=== PATIENT | male | born 1965 | race Caucasian/White ===

== ENCOUNTER 2024-03-03 03:38 | Emergency (ER) | payer OTHER ==
[~2024-03-03] VITALS: Ht 170.2 cm; Wt 74.8 kg
[~2024-03-03 03:38] MED LIST: CLON1TAB PO; ESCI10TA PO
[2024-03-03 03:47] VITALS: BP 131/79; TEMP 98; O2SAT 97
== END 2024-03-03 04:43 ==
LOC: ER 03:46
DX: Z02.89 Encounter for other administrative examinations (principal); Z98.890 Other specified postprocedural states; Z79.899 Other long term (current) drug therapy; Z60.2 Problems related to living alone; Z88.1 Allergy status to other antibiotic agents

== ENCOUNTER 2024-06-13 16:20 | Emergency (ER) | payer OTHER ==
[~2024-06-13] VITALS: Ht 175.3 cm; Wt 65.8 kg
[2024-06-13 16:56] VITALS: BP 126/68; TEMP 97.6; O2SAT 99
[2024-06-13] MEDS ORDERED: SULF1TAB48 PO (17:05)
[2024-06-13] MEDS ORDERED: CEPH-570 PO (17:05)
[2024-06-13] MEDS ORDERED: CEFTRIAXONE 1 G VIAL ONE (17:13)
[2024-06-13] MEDS ORDERED: LIDOCAINE /MPF 1% VIAL 5 ML VIAL ONE (17:14)
[2024-06-13] MEDS: CEFTRIAXONE 1 G VIAL IM ONE (17:25)
== END 2024-06-13 17:30 | disposition home or self-care (01) ==
LOC: ER 16:45
DX: L02.512 Cutaneous abscess of left hand (principal); F32.A Depression, unspecified; F41.9 Anxiety disorder, unspecified; Z88.8 Allergy status to other drugs, medicaments and biological substances
CPT/HCPCS: 99283; 96372; J0696; J3490; A6403

== ENCOUNTER 2024-06-24 13:09 | Emergency (ER) | payer OTHER ==
[~2024-06-24] VITALS: Ht 175.3 cm; Wt 77.6 kg
[~2024-06-24 13:09] MED LIST changes: +CEPH-570 PO; +SULF1TAB48 PO
[2024-06-24 13:47] LABS: BASOPHILS % (AUTO) 0.7 % (0.0-2.0); EOSINOPHILS # (AUTO) 0.1 K/uL (0.0-0.7); EOSINOPHILS % (AUTO) 0.9 % (0.0-6.0); HEMATOCRIT 33 % (39-51); HEMOGLOBIN 11.4 g/dL (13.5-17.5); LYMPHOCYTES # (AUTO) 1.1 K/uL (0.8-4.8); LYMPHOCYTES % (AUTO) 17.6 % (20.0-44.0); MEAN CORPUSCULAR HEMOGLOBIN 31 PG (26.0-33.0); MEAN CORPUSCULAR HGB CONC 35 g/dl (31.0-36.0); MEAN CORPUSCULAR VOLUME 88 fL (80-96); MONOCYTES # (AUTO) 0.6 K/uL (0.1-1.30); MONOCYTES % (AUTO) 9.9 % (2.0-12.0); NEUTROPHILS # (AUTO) 4.5 K/uL (1.8-8.9); NEUTROPHILS % (AUTO) 70.9 % (43.0-81.0); PLATELET COUNT (AUTO) 208 K/uL (150-450); RED CELL DISTRIBUTION WIDTH 12.9 % (11.5-15.0); WHITE BLOOD COUNT (AUTO) 6.4 K/uL (4.3-11.0)
[2024-06-24] MEDS ORDERED: ONDANSETRON HCL/PF 4 MG/2 ML VIAL ONE (14:16)
[2024-06-24] MEDS ORDERED: MORPHINE SULFATE INJ 4 MG/ML DISP.SYRIN ONE (14:16)
[2024-06-24 14:29] LABS: ALBUMIN 3.2 g/dL (3.4-5.0); BILIRUBIN,DIRECT 0.2 mg/dL (0.0-0.2); BILIRUBIN,TOTAL 0.7 mg/dL (0.2-1.0); CALCIUM, SERUM 9.2 mg/dL (8.5-10.1); CREATININE 0.7 mg/dL (0.6-1.3)
[2024-06-24] MEDS: IV NS 0.9% 1,000 ML BAG IV ONE (14:44)
[2024-06-24] MEDS: ONDANSETRON HCL/PF 4 MG/2 ML VIAL IV ONE (14:45)
[2024-06-24] MEDS: MORPHINE SULFATE INJ 2 MG/ML DISP.SYRIN IV ONE (14:48)
[2024-06-24 14:53] LABS: APPEARANCE,URINE CLEAR (CLEAR); BILIRUBIN,URINE NEGATIVE (NEGATIVE); BLOOD, URINE NEGATIVE Ery/uL (NEGATIVE); COLOR,URINE YELLOW (YELLOW); KETONES,URINE NEGATIVE (NEGATIVE); LEUKOCYTE ESTERASE ,URINE NEGATIVE (NEGATIVE); NITRITE, URINE NEGATIVE (NEGATIVE); PROTEIN,URINE NEGATIVE (NEGATIVE); UGLUCOSE NEGATIVE (NEGATIVE); UROBILINOGEN,URINE 0.2 EU/dL (0.2)
[2024-06-24] MEDS ORDERED: FURO-145 PO (16:04)
[2024-06-24] MEDS ORDERED: AMOX-430 PO (16:04)
[2024-06-24] MEDS ORDERED: ONDA4TAB5 PO (16:04)
[2024-06-24] MEDS ORDERED: DOXY100C2 PO (16:04)
[2024-06-24 16:49] VITALS: BP 115/77; TEMP 97.8; O2SAT 98
== END 2024-06-24 16:50 | disposition home or self-care (01) ==
LOC: ER 13:22
DX: K52.9 Noninfective gastroenteritis and colitis, unspecified (principal); F32.A Depression, unspecified; K86.2 Cyst of pancreas; K76.9 Liver disease, unspecified; L03.115 Cellulitis of right lower limb; L03.116 Cellulitis of left lower limb; Z79.899 Other long term (current) drug therapy; Z88.8 Allergy status to other drugs, medicaments and biological substances
CPT/HCPCS: 99285; 74176; 93970; 96374; 71045; 96361; 96375; 93005; 85025; 80048; 83690; 80076; 81003; 36415; 84484; 83880; J2270; J2405; J7030

== ENCOUNTER 2024-07-26 09:25 | Emergency (ER) | payer OTHER ==
[~2024-07-26] VITALS: Ht 165.1 cm; Wt 72.6 kg
[~2024-07-26 09:25] MED LIST changes: +AMOX-430 PO; +DOXY100C2 PO; +FURO-145 PO; +ONDA4TAB5 PO
[2024-07-26] MEDS ORDERED: SULF1TAB48 PO (10:19)
[2024-07-26] MEDS ORDERED: CEPH500C2 PO (10:19)
[2024-07-26] MEDS ORDERED: ACET-2605 PO (10:20)
[2024-07-26] MEDS ORDERED: IBUP-1955 PO (10:20)
[2024-07-26] MEDS ORDERED: ACETAMINOPHEN ES 500 MG TABLET ONE (10:25)
[2024-07-26] MEDS ORDERED: CEPHALEXIN MONOHYDRATE 500 MG CAPSULE PO ONE (10:26)
[2024-07-26] MEDS ORDERED: SULFAMETH/TRIMETH 800/160 MG 1 UDTAB TABLET ONE (10:27)
[2024-07-26] MEDS: SULFAMETH/TRIMETH 800/160 MG 1 UDTAB TABLET PO ONE (10:31)
[2024-07-26] MEDS: CEPHALEXIN MONOHYDRATE 500 MG CAPSULE PO ONE (10:31)
[2024-07-26] MEDS: ACETAMINOPHEN ES 500 MG TABLET PO ONE (10:32)
[2024-07-26] MEDS ORDERED: DICY10CA37 PO (11:06)
[2024-07-26] MEDS ORDERED: LOPE2TAB25 PO (11:06)
[2024-07-26 11:25] VITALS: BP 137/82; TEMP 99.2; O2SAT 98
[2024-07-26] MEDS: LOPERAMIDE HCL (2 MG CAP) 2 MG CAPSULE PO ONE (11:30)
== END 2024-07-26 11:31 | disposition home or self-care (01) ==
LOC: ER 09:30
DX: L02.511 Cutaneous abscess of right hand (principal); L03.011 Cellulitis of right finger; F32.A Depression, unspecified; F41.9 Anxiety disorder, unspecified; R00.0 Tachycardia, unspecified; R19.7 Diarrhea, unspecified; Z79.899 Other long term (current) drug therapy; Z88.8 Allergy status to other drugs, medicaments and biological substances
CPT/HCPCS: 99284; A6403

== ENCOUNTER 2024-08-10 01:35 | Emergency (ER) | payer OTHER ==
[~2024-08-10] VITALS: Ht 175.3 cm; Wt 78.0 kg
[~2024-08-10 01:35] MED LIST changes: +ACET-2605 PO; +CEPH500C2 PO; +DICY10CA37 PO; +IBUP-1955 PO; +LOPE2TAB25 PO
[2024-08-10 01:52] VITALS: BP 127/80; TEMP 98.1; O2SAT 98
[2024-08-10 02:23] LABS: BASOPHILS # (AUTO) 0.1 K/uL (0.0-0.2); EOSINOPHILS # (AUTO) 0.2 K/uL (0.0-0.7); EOSINOPHILS % (AUTO) 3.2 % (0.0-6.0); HEMATOCRIT 36 % (39-51); HEMOGLOBIN 12.7 g/dL (13.5-17.5); LYMPHOCYTES # (AUTO) 1.4 K/uL (0.8-4.8); MEAN CORPUSCULAR HEMOGLOBIN 31 PG (26.0-33.0); MEAN CORPUSCULAR HGB CONC 36 g/dl (31.0-36.0); MEAN CORPUSCULAR VOLUME 87 fL (80-96); MONOCYTES # (AUTO) 0.4 K/uL (0.1-1.30); MONOCYTES % (AUTO) 7.6 % (2.0-12.0); NEUTROPHILS # (AUTO) 3.6 K/uL (1.8-8.9); NEUTROPHILS % (AUTO) 63.2 % (43.0-81.0); PLATELET COUNT (AUTO) 327 K/uL (150-450); RED BLOOD CELL COUNT(AUTO) 4.09 MIL/uL (4.5-6.0); RED CELL DISTRIBUTION WIDTH 13.6 % (11.5-15.0); WHITE BLOOD COUNT (AUTO) 5.7 K/uL (4.3-11.0)
[2024-08-10 02:38] LABS: CREATININE 1.1 mg/dL (0.6-1.3); POTASSIUM 3.6 mmol/L (3.5-5.1)
[2024-08-10 02:41] LABS: INR 1.1 (0.91-1.10); PARTIAL THROMBOPLASTIN TIME 27.1 SEC (24.3-34.3); PROTHROMBIN TIME 11.6 SECS (9.2-11.1)
[2024-08-10 02:44] LABS: ALBUMIN 3.5 g/dL (3.4-5.0); BILIRUBIN,DIRECT 0.2 mg/dL (0.0-0.2); BILIRUBIN,TOTAL 0.7 mg/dL (0.2-1.0); TOTAL PROTEIN, SERUM 7.4 g/dL (6.4-8.2)
[2024-08-10] MEDS ORDERED: POLY119P PO (02:59)
[2024-08-10] MEDS ORDERED: PHEN28OI9 RC (02:59)
== END 2024-08-10 03:06 | disposition home or self-care (01) ==
LOC: ER 01:43
DX: K92.1 Melena (principal); K64.9 Unspecified hemorrhoids; F32.A Depression, unspecified; F41.9 Anxiety disorder, unspecified; Z79.899 Other long term (current) drug therapy; Z88.8 Allergy status to other drugs, medicaments and biological substances
CPT/HCPCS: 36415; 80048-TC; 80076-TC; 85025-TC; 85730-TC; 86850-TC

== ENCOUNTER 2024-08-22 15:53 | Emergency (ER) | payer OTHER ==
[~2024-08-22] VITALS: Ht 175.3 cm; Wt 78.0 kg
[~2024-08-22 15:53] MED LIST changes: +PHEN28OI9 RC; +POLY119P PO
[2024-08-22 18:22] LABS: BASOPHILS % (AUTO) 0.7 % (0.0-2.0); EOSINOPHILS # (AUTO) 0.1 K/uL (0.0-0.7); EOSINOPHILS % (AUTO) 1.3 % (0.0-6.0); HEMATOCRIT 34 % (39-51); HEMOGLOBIN 12.1 g/dL (13.5-17.5); LYMPHOCYTES # (AUTO) 1.6 K/uL (0.8-4.8); LYMPHOCYTES % (AUTO) 27.3 % (20.0-44.0); MEAN CORPUSCULAR HEMOGLOBIN 30 PG (26.0-33.0); MEAN CORPUSCULAR HGB CONC 35 g/dl (31.0-36.0); MEAN CORPUSCULAR VOLUME 86 fL (80-96); MONOCYTES # (AUTO) 0.5 K/uL (0.1-1.30); MONOCYTES % (AUTO) 8.9 % (2.0-12.0); NEUTROPHILS # (AUTO) 3.6 K/uL (1.8-8.9); NEUTROPHILS % (AUTO) 61.8 % (43.0-81.0); PLATELET COUNT (AUTO) 227 K/uL (150-450); RED BLOOD CELL COUNT(AUTO) 3.99 MIL/uL (4.5-6.0); RED CELL DISTRIBUTION WIDTH 14.4 % (11.5-15.0); WHITE BLOOD COUNT (AUTO) 5.9 K/uL (4.3-11.0)
[2024-08-22] MEDS ORDERED: AMOX-430 PO (18:30)
[2024-08-22 18:46] LABS: CREATININE 0.9 mg/dL (0.6-1.3); POTASSIUM 3.5 mmol/L (3.5-5.1)
[2024-08-22] MEDS ORDERED: LOPE2TAB25 PO (19:23)
[2024-08-22 19:35] VITALS: BP 150/80; TEMP 97.9; O2SAT 99
== END 2024-08-22 19:35 | disposition home or self-care (01) ==
LOC: ER 15:54
DX: J06.9 Acute upper respiratory infection, unspecified (principal); R19.7 Diarrhea, unspecified; R33.9 Retention of urine, unspecified; F32.A Depression, unspecified; F41.9 Anxiety disorder, unspecified; Z79.899 Other long term (current) drug therapy; Z88.8 Allergy status to other drugs, medicaments and biological substances
CPT/HCPCS: 99284; 71045; 85025; 80048; 36415; J7030

== ENCOUNTER 2024-09-28 11:29 | Emergency (ER) | payer OTHER ==
[~2024-09-28] VITALS: Ht 172.7 cm; Wt 70.3 kg
[2024-09-28 12:15] VITALS: TEMP 98.9
[2024-09-28 13:09] LABS: BASOPHILS % (AUTO) 0.7 % (0.0-2.0); EOSINOPHILS # (AUTO) 0.1 K/uL (0.0-0.7); EOSINOPHILS % (AUTO) 1.8 % (0.0-6.0); HEMATOCRIT 36 % (39-51); HEMOGLOBIN 12.3 g/dL (13.5-17.5); LYMPHOCYTES % (AUTO) 15.2 % (20.0-44.0); MEAN CORPUSCULAR HEMOGLOBIN 31 PG (26.0-33.0); MEAN CORPUSCULAR HGB CONC 35 g/dl (31.0-36.0); MEAN CORPUSCULAR VOLUME 89 fL (80-96); MONOCYTES # (AUTO) 0.5 K/uL (0.1-1.30); MONOCYTES % (AUTO) 7.8 % (2.0-12.0); NEUTROPHILS % (AUTO) 74.5 % (43.0-81.0); PLATELET COUNT (AUTO) 211 K/uL (150-450); RED BLOOD CELL COUNT(AUTO) 4.02 MIL/uL (4.5-6.0); RED CELL DISTRIBUTION WIDTH 14.5 % (11.5-15.0); WHITE BLOOD COUNT (AUTO) 6.7 K/uL (4.3-11.0)
[2024-09-28 13:10] LABS: CALCIUM, SERUM 8.4 mg/dL (8.5-10.1); CARBON DIOXIDE 27 mmol/L (21-32); CHLORIDE 108 mmol/L (98-107); CREATININE 0.9 mg/dL (0.6-1.3); GLUCOSE 106 mg/dL (74-106); POTASSIUM 3.8 mmol/L (3.5-5.1); SODIUM SERUM 143 mmol/L (136-145); UREA NITROGEN, BLOOD 16 mg/dL (7-18)
[2024-09-28 13:14] LABS: LACTIC ACID 0.8 mmol/L (0.4-2.0)
[2024-09-28 13:21] LABS: ALANINE AMINOTRANSFERASE 14 U/L (12-78); ALBUMIN 3.4 g/dL (3.4-5.0); ALKALINE PHOSPHATASE 93 U/L (46-116); ASPARTATE AMINOTRANSFERASE 15 U/L (15-37); BILIRUBIN,DIRECT 0.1 mg/dL (0.0-0.2); BILIRUBIN,TOTAL 0.5 mg/dL (0.2-1.0); TOTAL PROTEIN, SERUM 7.2 g/dL (6.4-8.2)
[2024-09-28 13:22] LABS: THYROID STIMULATING HORMONE 0.96 uIU/mL (0.358-3.74)
[2024-09-28] MEDS ORDERED: SULF1TAB48 PO (13:54)
[2024-09-28] MEDS ORDERED: CEPH-570 PO (13:54)
[2024-09-28] MEDS ORDERED: LOPE2CAP40 PO (14:26)
[2024-09-28 14:30] VITALS: BP 126/80; O2SAT 98
[2024-09-28 15:03] LABS: AMPHETAMINE, URINE NEGATIVE (NEGATIVE); BARBITURATE, URINE NEGATIVE (NEGATIVE); BENZODIAZEPINE, URINE NEGATIVE (NEGATIVE); CANNABINOID, URINE NEGATIVE (NEGATIVE); COCCAINE, URINE NEGATIVE (NEGATIVE); OPIATE, URINE NEGATIVE (NEGATIVE); PHENCYCLIDINE SCREEN,URINE NEGATIVE (NEGATIVE)
== END 2024-09-28 14:42 | disposition home or self-care (01) ==
LOC: ER 13:11
DX: L03.115 Cellulitis of right lower limb (principal); L03.116 Cellulitis of left lower limb; R60.0 Localized edema; R19.7 Diarrhea, unspecified; F32.A Depression, unspecified; F41.9 Anxiety disorder, unspecified; Z79.899 Other long term (current) drug therapy; Z88.8 Allergy status to other drugs, medicaments and biological substances
CPT/HCPCS: 36415; 71045-TC; 80048-TC; 80076-TC; 83605-TC; 83880; 84443-TC; 84484-TC; 85025-TC; 87040-TC; 93970-TC; G0480

== ENCOUNTER 2024-10-30 13:51 | Emergency (ER) | payer OTHER ==
[~2024-10-30] VITALS: Ht 175.3 cm; Wt 74.4 kg
[~2024-10-30 13:51] MED LIST changes: +LOPE2CAP40 PO
[2024-10-30] MEDS ORDERED: KETO10TA2 PO (15:45)
[2024-10-30] MEDS ORDERED: SULF1TAB48 PO (15:45)
[2024-10-30 16:07] VITALS: BP 143/81; TEMP 98.5; O2SAT 100
[2024-10-30] MEDS ORDERED: IBUP-1955 PO (16:52)
== END 2024-10-30 16:10 | disposition home or self-care (01) ==
LOC: ER 13:55
DX: L03.317 Cellulitis of buttock (principal); F32.A Depression, unspecified; F41.9 Anxiety disorder, unspecified; Z79.899 Other long term (current) drug therapy; Z88.8 Allergy status to other drugs, medicaments and biological substances

== ENCOUNTER 2025-04-26 08:31 | Emergency (ER) | payer OTHER ==
[~2025-04-26] VITALS: Ht 175.3 cm; Wt 72.6 kg
[~2025-04-26 08:31] MED LIST changes: +KETO10TA2 PO
[2025-04-26] MEDS ORDERED: LIDOCAINE 5% (PATCH) 1 EA PATCH TP ONE (09:33)
[2025-04-26] MEDS: LIDOCAINE 5% (PATCH) 1 EA PATCH TP STA (09:34)
[2025-04-26] MEDS ORDERED: IBUP-1955 PO (10:31)
[2025-04-26] MEDS ORDERED: LIDO30AD10 TP (10:31)
[2025-04-26 10:45] VITALS: BP 110/60; TEMP 98.1; O2SAT 99
== END 2025-04-26 10:46 | disposition home or self-care (01) ==
LOC: ER 08:38
DX: M79.672 Pain in left foot (principal); F32.A Depression, unspecified; F41.9 Anxiety disorder, unspecified; G89.29 Other chronic pain; Z79.899 Other long term (current) drug therapy; Z88.8 Allergy status to other drugs, medicaments and biological substances
CPT/HCPCS: 73630-TC

== ENCOUNTER 2025-07-12 10:51 | Emergency (ER) | payer OTHER ==
[~2025-07-12] VITALS: Ht 175.3 cm; Wt 78.9 kg
[~2025-07-12 10:51] MED LIST changes: +LIDO30AD10 TP
[2025-07-12 10:59] VITALS: BP 131/79; TEMP 98.4
[2025-07-12] MEDS ORDERED: OXYM15MI4 NS (11:05)
[2025-07-12 11:17] VITALS: O2SAT 97
[2025-07-12] MEDS ORDERED: MUPI1OIN5 TP (11:22)
[2025-07-12] MEDS ORDERED: KETOROLAC TROMETHAMINE 15 MG/ML VIAL ONE (11:44)
[2025-07-12] MEDS: KETOROLAC TROMETHAMINE 15 MG/ML VIAL IM ONE (11:55)
== END 2025-07-12 11:56 | disposition home or self-care (01) ==
LOC: ER 10:57
DX: L08.9 Local infection of the skin and subcutaneous tissue, unspecified (principal); R09.81 Nasal congestion; F32.A Depression, unspecified; F41.9 Anxiety disorder, unspecified; Z79.899 Other long term (current) drug therapy; Z88.8 Allergy status to other drugs, medicaments and biological substances
CPT/HCPCS: 99283; 96372; J1885